=== PATIENT | male | born 1930 | race Caucasian/White ===

== ENCOUNTER → 2016-05-26 | Outpatient (CLI) | payer OTHER ==
[~2016-05-26] MED LIST: NS 100 ML IV 100 ML IV ONE
[2016-05-26 09:06] LABS: CREATININE 1.28 mg/dL (0.70-1.30)
--- NOTE | 2016-05-26 10:51 | CT ---
HISTORY: Bilateral inguinal hernia Study: CT abdomen and pelvis with contrast Comparison: None Technique: Multiple axial images of the abdomen and pelvis were obtained with IV contrast. Oral contrast was a dministered. Dose reduction techniques including Automated Exposure Control (AEC) and adjustment of mA and kV were utilized. Findings: There are emphysematous changes seen at the bilateral lung bases. Normal-sized heart. The liver, sp rhiannon, pancreas, kidneys, and adrenal glands are unremarkable in their CT appearance. The gallbladder is normal. No renal calculi or obstructive uropathy. No free intraperitoneal air. No evidence of intestinal obstruction or inflammation. The appendix is not clearly visualized. Oral contrast reaches the ascending colon. No free fluid identified. Normal appearance of the urinary bladder. There are bilateral inguinal hernias, larger on the right side containing a small segment of small b owel without evidence of incarceration. The left inguinal hernia contains fat. There are degenerativ e changes of the lumbosacral spine and bilateral hips. There is prominent atherosclerotic disease of the aorta and branch vessels. No pathologically enlarged lymph nodes are identified. IMPRESSION: 1. Bilateral inguinal hernias, larger on the right side. The right-sided hernia contains a short seg ment of small bowel without evidence of incarceration. The left inguinal hernia only contains fat. 2. Prominent atherosclerotic disease of the aorta and branch vessels. 3. Emphysematous changes at the lung bases. Reported By:
== END ==
LOC: RAD 08:35
PROVIDERS: ATTEND Nurse Practitioner Family
DX: K40.20 Bilateral inguinal hernia, without obstruction or gangrene, not specified as recurrent (principal); R10.31 Right lower quadrant pain; R10.11 Right upper quadrant pain
CPT/HCPCS: 36415; 74177; 82565; 84520; A4222

== ENCOUNTER → 2016-06-20 | Outpatient (CLI) | payer OTHER | LOC: RAD 09:01 | PROVIDERS: ATTEND Internal Medicine Cardiovascular Disease | DX: Z95.5 Presence of coronary angioplasty implant and graft (principal); R06.02 Shortness of breath; R42 Dizziness and giddiness | CPT/HCPCS: 78452; 93017; A9502 ==

== ENCOUNTER → 2016-07-06 | Outpatient (CLI) | payer OTHER | LOC: RAD 13:28 | PROVIDERS: ATTEND Internal Medicine Cardiovascular Disease | DX: I48.91 Unspecified atrial fibrillation (principal) | CPT/HCPCS: 93306 ==

== ENCOUNTER 2018-12-07 17:30 | Inpatient (IN) ==
--- NOTE | 2018-12-07 17:58 | DR.GENAD ---
HPI Time Seen Time Seen by Provider: 12/07/18 17:51 PCP Primary Care Physician: FINN ROSALES HPI Comment HPI Comment: THIS IS 88YR OLD WHITE MALE, PATIENT OF [facility] IS IN THE EMERGENCY ROOM WITH 5 DAYS HISTORY OF PROGRESSIVE SOB, WEAKNESS, ANOREXIA AND LEFT SHOULDER PAIN. PATIENT HAVE HISTORY OF CAD, S/P ANGIOPLASTY AND STENT AND DYSLIPIDEMIA. FOR PAST SEVERAL DAYS, HE IS HAVING EXERTIONAL DYSPNIA AND ORTHONEA. NO FEVER OR TRAUMA. Complaint/Symptoms Chief Complaint Doctors Comments: GENERALIZE WEAKNESS, SOB, LEFT SHOULDER PAIN AND ANOREXIA TIMES 5 DAYS. Chief Complaint:: PT. C/O WEAKNESS, SHORTNESS OF BREATH, DECREASED INTAKE AND LEFT SHOULDER PAIN. Nurses notes reviewed Nurses Notes Review: Yes Source History Provided: Patient Mode of Arrival Mode of Arrival: Ambulatory Timing Onset of Chief Complaint: 12/02/18 Came on: Suddenly Duration Duration: Constant Duration: Days Severity Severity: Moderate Modifying Factors Worsens:: EXERTION Improves:: REST Associated Signs and Symptoms Associated Signs and Symptoms: WEAKNESS. Other History Other History: CAD, A FIB. PMH PMH Past Medical History: Yes Past Medical History: Coronary Artery Disease and Dyslipidemia Past Surgical History: Yes Surgical History: Angioplasty/Stents and Other Family History History of Family Medical Conditions: Yes Family Medical History: Coronary Artery Disease Social History Does patient currently use any type of tobacco product: No Have you used tobacco products in the last 12 months: No Type of Tobacco Use: None Does any household member use tobacco: No Alcohol Use: None Do you use any recreational Drugs:: No Lives With: Alone Lives Where: Home infectious screening In the last 2 months have you had wt loss of >10#?: NO Have you had fever, night sweats or hemotysis?: No Have you traveled outside the country in the last 6 months?: No Isolation: Standard ROS Review of Systems Constitutional: See HPI, Weakness and Fatigue; negative Chills and Fever Eyes: See HPI and Other (BLIND) ENTM: Hearing Loss (DECREASE HEARING.); negative Ear Pain, Nose Discharge, Nose Congestion and Throat Pain Respiratoy: See HPI and Short of Breath; negative Productive Cough and Wheezing Cardiovascular: See HPI and Palpitations (IRREGULAR HEART RATE.); negative Edema Gastrointestinal/Abdominal: See HPI; negative Abdominal Pain, Constipation, Diarrhea and Nausea Genitourinary: See HPI; negative Dysuria and Hematuria Neurological: See HPI and Weakness; negative Headache and Dizziness Musculoskeletal: See HPI; negative Back Pain and Muscle Pain Integumentary: See HPI; negative Change in Color, Rash and Juandice Hematologic/Lymphatic: No Symptoms Reported, See HPI, Easy Bleeding and Easy Bruising; negative Swollen Glands Endocrine: See HPI; negative Increased Thirst and Increased Urine Psychiatric: No Symptoms Reported and See HPI All Other Systems: Reviewed and Negative PE Vital Signs Vitals: Temperature 98.8 F Pulse Rate [Left Brachial] 93 Pulse Rate 93 Respiratory Rate 18 Blood Pressure [Right Arm] 108/75 Blood Pressure 108/75 O2 Sat by Pulse Oximetry 96 General Limitations: Other (BLINDNESS.) General Appearance: Alert and In Distress Head Head Exam: Normal Inspection and Atraumatic Eyes Eye exam: Other (BLINDNESS BOTH EYES.) ENT ENT Exam: Normal Exam, Normal Oropharynx, Normal External Ear Exam and TM's Normal Bilaterally External Ear Exam: Normal External Inspection; negative Mastoid Tenderness, Pain with Movement and External Tenderness TM/Canal Exam: Bilateral: Normal Nose Exam: Normal Nose Exam; negative Sinus Tenderness, Nasal Deviation and Septal Hematoma Mouth Exam: Normal Inspection; negative Lip Swelling and Tongue Swelling Throat Exam: negative Tonsillar Erythema, Tonsillomegaly and Tonsillar Exudate Neck Neck Exam: Normal Inspection and Trachea Midline; negative Tenderness and Lymphadenopathy Chest Chest Inspection: Normal Inspection and Symmetric Chest Wall Rise; negative Tenderness Respiratory Respiratory Exam: Normal Lung Sounds Bilat and Respiratory Distress; negative Accessory Muscle Use and Chest Wall Tenderness Respiratory Exam: Bilateral: Rhonchi, Upper: Rhonchi and Lower: Rhonchi Cardiovascular Cardiovascular Exam: Tachycardia and Irregular Rhythm; negative Systolic Murmur and Diastolic Murmur Abdominal Exam Abdominal Exam: Normal Inspection, Normal Bowel Sounds and Soft; negative Tenderness Extremities Extremities Exam: Normal Inspection and Normal Capillary Refill; negative Tenderness, Edema and Calf Tenderness Back Back Exam: negative Tenderness, (R) CVA Tenderness, (L) CVA Tenderness, Paraspinal Tenderness and Vertebral Tenderness Neurologic Neurological Exam: Alert, Oriented X3 and CN II-XII Intact (BLINDNESS.) Psychiatric Psychiatric Exam: Normal Affect and Normal Mood Skin Skin Exam: Warm, Dry, Intact and Normal Color MDM Additional Information Additional Information Obtained From: Family Differential Diagnosis Differential Diagnosis: CAD/LT SHOULDER PAIN, DYSPNIA, GENERALIZED WEAKNESS, A FIB, NV, UTI, PNEUMO COURSE Treatment Treatment: SEE ORDERS. LASIX, 20MG IM. Consultation Consultation Comments: DISCUSSED PATIENT WITH DR. GANN AND SHE WILL ADMIT PATIENT. Education/Counseling Education/Counseling: Patient and Family Educated On: Diagnosis ROR Labs Reviewed Laboratory Results Reviewed?: Yes Result Diagrams: 12/08/18 04:32 12/08/18 04:32 Laboratory: WBC 11.1 X10^3/uL (3.6-10.0) H 12/07/18 18:13 RBC 4.66 X10^6/uL (4.7-6.0) L 12/07/18 18:13 Hgb 15.1 g/dL (13.5-18.0) 12/07/18 18:13 Hct 44.4 % (42.0-54.0) 12/07/18 18:13 MCV 95.2 fL (80.0-100.0) 12/07/18 18:13 MCH 32.3 pg (27.0-34.0) 12/07/18 18:13 MCHC 33.9 g/dL (33.0-35.0) 12/07/18 18:13 RDW 16.0 % (11.6-16.5) 12/07/18 18:13 Plt Count 254 X10^3/uL (150.0-450.0) 12/07/18 18:13 MPV 7.3 fL (7.4-11.0) L 12/07/18 18:13 Neut % (Auto) 78.4 % (42.0-75.0) H 12/07/18 18:13 Lymph % (Auto) 10.5 % (21.0-51.0) L 12/07/18 18:13 [place] % (Auto) 10.6 % (0.0-13.0) 12/07/18 18:13 Eos % (Auto) 0.1 % (0.9-2.9) L 12/07/18 18:13 Baso % (Auto) 0.4 % (0.2-1.0) 12/07/18 18:13 Neut # (Auto) 8.7 x10^3/uL (2.2-4.8) H 12/07/18 18:13 Lymph # (Auto) 1.2 X10^3/uL (1.3-2.9) L 12/07/18 18:13 [place] # (Auto) 1.2 x10^3/uL (0.3-0.8) H 12/07/18 18:13 Eos # (Auto) 0.0 x10^3/uL (0.0-0.2) 12/07/18 18:13 Baso # (Auto) 0.0 X10^3/uL (0.0-0.1) 12/07/18 18:13 Absolute Nucleated RBC 0.0 /100WBC 12/07/18 18:13 Sodium 140 mmol/L (136-145) 12/07/18 18:13 Corrected Sodium 141 mmol/L (136-145) 12/07/18 18:13 Potassium 4.0 mmol/L (3.5-5.1) 12/07/18 18:13 Chloride 103 mmol/L (98-107) 12/07/18 18:13 Carbon Dioxide 24.6 mmol/L (21-32) 12/07/18 18:13 BUN 36 mg/dL (7-18) H 12/07/18 18:13 Creatinine 1.54 mg/dL (0.70-1.30) H 12/07/18 18:13 Est GFR (MDRD) Af Amer 55 (>60) L 12/07/18 18:13 Est GFR (MDRD) Non-Af 45 (>60) L 12/07/18 18:13 Glucose 132 mg/dL (65-99) H 12/07/18 18:13 Calcium 8.3 mg/dL (8.5-10.1) L 12/07/18 18:13 Corrected Calcium 9.2 mg/dL (8.5-10.1) 12/07/18 18:13 Total Bilirubin 1.20 mg/dL (0.2-1.0) H 12/07/18 18:13 AST 12 Units/L (15-37) L 12/07/18 18:13 ALT 11 Units/L (12-78) L 12/07/18 18:13 Alkaline Phosphatase 101 Units/L (46-116) 12/07/18 18:13 Creatine Kinase 18 Units/L (39-308) L 12/07/18 18:13 CK-MB (CK-2) < 1.0 ng/mL (0-4.0) 12/07/18 18:13 CK/CKMB % Calc 5.6 % (<4) 12/07/18 18:13 Troponin I < 0.02 ng/mL (0-1.5) 12/07/18 18:13 B-Natriuretic Peptide 317 pg/mL (0-79) H 12/07/18 18:13 Total Protein 7.3 g/dL (6.4-8.2) 12/07/18 18:13 Albumin 2.9 g/dL (3.4-5.0) L 12/07/18 18:13 Globulin 4.4 g/dL (2.5-4.5) 12/07/18 18:13 Albumin/Globulin Ratio 0.7 Ratio (1.1-2.1) L 12/07/18 18:13 XRAY XRAY Interpreted by: Radiologist XRAY Findings: REPORT NOTED AND DISCUSSED WITH PATIENT AND FAMILY. EKG Rate: 111 [place]: Normal Rhythm: Afib Block: None Hypertrophy: None ST: Nonsp Opioid Opioid Risk Tool Age (Shahriar box if 16-45): No History of Preadolescent Sexual Abuse: No Total: 0 Total Score Risk Category: Low Risk Copyright: [place] predicting aberrant behaviors Diagnosis Discharge Problem: Generalized weakness, Atrial fibrillation with RVR CHF (congestive heart failure) Qualifiers: Heart failure type: combined systolic and diastolic Heart failure chronicity: acute on chronic Qualified Code(s): I50.43 - Acute on chronic combined systolic (congestive) and diastolic (congestive) heart failure CAD (coronary artery disease) Qualifiers: Coronary Disease-Associated Artery/Lesion type: unspecified vessel or lesion type [place] vs. transplanted heart: [place] heart Associated angina: with unspecified angina Qualified Code(s): I25.119 - Atherosclerotic heart disease of [place] coronary artery with unspecified angina pectoris Instructions Forms: Excuse From Work Patient Portal
[2018-12-07] MEDS ORDERED: NS 1000 ML 1,000 ML ONE (18:09)
[2018-12-07 18:26] LABS: BASOPHILS % (AUTO) 0.4 % (0.2-1.0); EOSINOPHILS % (AUTO) 0.1 % (0.9-2.9); HEMATOCRIT 44.4 % (42.0-54.0); HEMOGLOBIN 15.1 g/dL (13.5-18.0); LYMPHOCYTES # (AUTO) 1.2 X10^3/uL (1.3-2.9); LYMPHOCYTES % (AUTO) 10.5 % (21.0-51.0); MEAN CORPUSCULAR HEMOGLOBIN 32.3 pg (27.0-34.0); MEAN CORPUSCULAR HGB CONC 33.9 g/dL (33.0-35.0); MEAN CORPUSCULAR VOLUME 95.2 fL (80.0-100.0); MEAN PLATELET VOLUME 7.3 fL (7.4-11.0); MONOCYTES # (AUTO) 1.2 x10^3/uL (0.3-0.8); MONOCYTES % (AUTO) 10.6 % (0.0-13.0); NEUTROPHILS # (AUTO) 8.7 x10^3/uL (2.2-4.8); NEUTROPHILS % (AUTO) 78.4 % (42.0-75.0); PLATELET COUNT 254 X10^3/uL (150.0-450.0); RED BLOOD COUNT 4.66 X10^6/uL (4.7-6.0); WHITE BLOOD COUNT 11.1 X10^3/uL (3.6-10.0)
--- NOTE | 2018-12-07 18:35 | RAD ---
HISTORY: 88-year-old male with weakness and shortness of breath. Study: Frontal view of the chest. Comparison: Chest radiographs 10/03/2018 Findings: Interval exacerbated in of cardiomegaly with continued prominence of perihilar lung markings and interstitium. The trachea is midline. Small left effusion with mild pulmonary edema. No pneumothorax or large consolidation. Soft tissues are unremarkable. Osseous structures are unremarkable. IMPRESSION: 1. Interval exacerbated of cardiomegaly with mild pulmonary edema and small left effusion, correlate with serology for CHF and underlying infection. Reported By:
[2018-12-07 18:43] LABS: BLOOD UREA NITROGEN 36 mg/dL (7-18); CALCIUM 8.3 mg/dL (8.5-10.1); CARBON DIOXIDE 24.6 mmol/L (21-32); CHLORIDE 103 mmol/L (98-107); COR NA(FOR HYPERGLY) 141 mmol/L (136-145); CREATININE 1.54 mg/dL (0.70-1.30); SODIUM 140 mmol/L (136-145); TROPONIN I < 0.02 ng/mL (0-1.5); eGFR NON BLACK RACES 45 (>60)
[2018-12-07 18:47] LABS: ALANINE AMINOTRANSFERASE 11 Units/L (12-78); ALBUMIN 2.9 g/dL (3.4-5.0); ALKALINE PHOSPHATASE 101 Units/L (46-116); ASPARTATE AMINO TRANSFERASE 12 Units/L (15-37); CKMB % 5.6 % (<4); COR CA(FOR HYPOALB) 9.2 mg/dL (8.5-10.1); CREATINE KINASE 18 Units/L (39-308); CREATINE KINASE MB < 1.0 ng/mL (0-4.0); TOTAL PROTEIN 7.3 g/dL (6.4-8.2)
[2018-12-07] MEDS ORDERED: NS 1000 ML 1,000 ML IV SCH (19:00)
[2018-12-07] MEDS ORDERED: LASIX IVP ONE (20:11)
[2018-12-07] MEDS ORDERED: LASIX ONE (20:18)
[2018-12-07 21:46] LABS: CKMB % 5.3 % (<4); CREATINE KINASE 19 Units/L (39-308); CREATINE KINASE MB < 1.0 ng/mL (0-4.0); TROPONIN I < 0.02 ng/mL (0-1.5)
[2018-12-08 02:00] VITALS: BMI 19.5
[2018-12-08 02:12] LABS: BILIRUBIN,URINE NEGATIVE (NEGATIVE); BLOOD/HEMOGLOBIN,URINE 3+ (NEGATIVE); GLUCOSE, URINE NEGATIVE (NEGATIVE); KETONES,URINE NEGATIVE (NEGATIVE); LEUKOCYTE ESTERASE ,URINE 3+ (NEGATIVE); NITRITES,URINE NEGATIVE (NEGATIVE); PH,URINE 6.5 (5.0 - 8.0); PROTEIN,URINE 2+ (NEGATIVE); UROBILINOGEN,URINE 1+ (NORMAL)
[2018-12-08 02:19] LABS: APPEARANCE,URINE CLOUDY (CLEAR); BACTERIA,URINE 2+ /HPF (NEGATIVE); COLOR,URINE YELLOW (YELLOW); MUCUS,URINE FEW /HPF (NEGATIVE); SQUAMOUS EPITHELIAL CELL,UR RARE /HPF (NEGATIVE)
[2018-12-08 06:08] LABS: BASOPHILS % (AUTO) 0.2 % (0.2-1.0); EOSINOPHILS % (AUTO) 0.2 % (0.9-2.9); HEMATOCRIT 45.5 % (42.0-54.0); HEMOGLOBIN 15.7 g/dL (13.5-18.0); LYMPHOCYTES % (AUTO) 10.8 % (21.0-51.0); MEAN CORPUSCULAR HEMOGLOBIN 32.9 pg (27.0-34.0); MEAN CORPUSCULAR HGB CONC 34.5 g/dL (33.0-35.0); MEAN CORPUSCULAR VOLUME 95.1 fL (80.0-100.0); MEAN PLATELET VOLUME 7.7 fL (7.4-11.0); MONOCYTES # (AUTO) 0.9 x10^3/uL (0.3-0.8); MONOCYTES % (AUTO) 8.8 % (0.0-13.0); NEUTROPHILS # (AUTO) 7.7 x10^3/uL (2.2-4.8); PLATELET COUNT 257 X10^3/uL (150.0-450.0); RED BLOOD COUNT 4.78 X10^6/uL (4.7-6.0); WHITE BLOOD COUNT 9.7 X10^3/uL (3.6-10.0)
[2018-12-08 06:49] LABS: ALANINE AMINOTRANSFERASE 13 Units/L (12-78); ALBUMIN 2.9 g/dL (3.4-5.0); ALKALINE PHOSPHATASE 106 Units/L (46-116); ASPARTATE AMINO TRANSFERASE 15 Units/L (15-37); BLOOD UREA NITROGEN 35 mg/dL (7-18); CALCIUM 8.5 mg/dL (8.5-10.1); CARBON DIOXIDE 28.4 mmol/L (21-32); CHLORIDE 102 mmol/L (98-107); CHOL/HDL RATIO 2.8 (0.0-5.0); CHOLESTEROL 124 mg/dL (0-200); CKMB % 4.8 % (<4); COR CA(FOR HYPOALB) 9.4 mg/dL (8.5-10.1); COR NA(FOR HYPERGLY) 142 mmol/L (136-145); CREATINE KINASE 21 Units/L (39-308); CREATINE KINASE MB < 1.0 ng/mL (0-4.0); CREATININE 1.63 mg/dL (0.70-1.30); HDL CHOLESTEROL 44 mg/dL (40-60); MAGNESIUM 2.2 mg/dL (1.7-2.9); SODIUM 141 mmol/L (136-145); TOTAL PROTEIN 7.5 g/dL (6.4-8.2); TRIGLYCERIDES 51 mg/dL (0-150); TROPONIN I < 0.02 ng/mL (0-1.5); eGFR NON BLACK RACES 43 (>60)
[2018-12-08] MEDS ORDERED: LASIX IVP SCH (09:00)
[2018-12-08] MEDS ORDERED: LASIX IVP ONE (10:07)
[2018-12-08] MEDS: RANEXA PO SCH ×3 (10:10→21:22)
[2018-12-08] MEDS: LASIX IVP SCH (10:10)
[2018-12-08] MEDS: LOPRESSOR TAB 25 MG PO SCH ×2 (10:14→21:20)
--- NOTE | 2018-12-08 11:22 | DR.H&P ---
H&P History & Physical for Day of: H&P Date: 12/08/18 Chief Complaint Chief Complaint: worsening SOB , weakness and anorexia. Allergies Allergies Allergy/AdvReac Type Severity Reaction Status Date / Time No Known Drug Allergies Allergy Verified 12/07/18 17:36 History of Present Illness History of Present Illness: Mr. Melgar is a 88y/o male with a PMH of atrial fi brillation, CAD s/p PCI and HLD presented with generalized weakness, SOB, anorexia and left shoulder pain. Patient reports symptoms started a day before coming to ED. He states his shoulder pain has been there longer and it travels from left shoulder to right. He denies chest pain. He sees Dr. De Guzman, last seen for atrial fibrillation. He was started on Ranexa. He had a normal stress test in September 2018. On admission, CXR showed vascular congestion and left effusion. He was noted to have Afib with RVR with HR in 90s-low 100s. He was given 20 mg IV Lasix. Trop x 3 (-), BNP: 317. He was not taking any medication for rate control, not on any anti-coagulation. Patient reports SOB is about the same, he has not walked around since admission. At home, he was having dyspnea on exertion. He reports improvement in appetite, he was able to finish his breakfast this morning. Past Medical History Past Medical History: Angina, Coronary Artery Disease and Dyslipidemia Additional Medical History: Atrial fibrillation, Hyperlipidemia Past Surgical History Surgical History: Angioplasty/Stents and Other Family History Family Medical History: Coronary Artery Disease Social History Does patient currently use any type of tobacco product: No Have you used tobacco products in the last 12 months: No Type of Tobacco Use: None Does any household member use tobacco: No Alcohol Use: None Drug Use: None Medications Home Medications: No Known Drug Allergies Allergy (Verified 12/07/18 17:36) CONTINUE taking the following medications atorvastatin [Lipitor] 10 mg PO DAILY 12/08/18 [History] ranolazine [Ranexa] 500 mg PO BID 12/08/18 [History] Labs Result Diagrams: 12/08/18 04:32 12/08/18 04:32 Labs: Laboratory WBC 9.7 X10^3/uL (3.6-10.0) 12/08/18 04:32 RBC 4.78 X10^6/uL (4.7-6.0) 12/08/18 04:32 Hgb 15.7 g/dL (13.5-18.0) 12/08/18 04:32 Hct 45.5 % (42.0-54.0) 12/08/18 04:32 MCV 95.1 fL (80.0-100.0) 12/08/18 04:32 MCH 32.9 pg (27.0-34.0) 12/08/18 04:32 MCHC 34.5 g/dL (33.0-35.0) 12/08/18 04:32 RDW 16.0 % (11.6-16.5) 12/08/18 04:32 Plt Count 257 X10^3/uL (150.0-450.0) 12/08/18 04:32 MPV 7.7 fL (7.4-11.0) 12/08/18 04:32 Neut % (Auto) 80.0 % (42.0-75.0) H 12/08/18 04:32 Lymph % (Auto) 10.8 % (21.0-51.0) L 12/08/18 04:32 [place] % (Auto) 8.8 % (0.0-13.0) 12/08/18 04:32 Eos % (Auto) 0.2 % (0.9-2.9) L 12/08/18 04:32 Baso % (Auto) 0.2 % (0.2-1.0) 12/08/18 04:32 Neut # (Auto) 7.7 x10^3/uL (2.2-4.8) H 12/08/18 04:32 Lymph # (Auto) 1.0 X10^3/uL (1.3-2.9) L 12/08/18 04:32 [place] # (Auto) 0.9 x10^3/uL (0.3-0.8) H 12/08/18 04:32 Eos # (Auto) 0.0 x10^3/uL (0.0-0.2) 12/08/18 04:32 Baso # (Auto) 0.0 X10^3/uL (0.0-0.1) 12/08/18 04:32 Absolute Nucleated RBC 0.1 /100WBC 12/08/18 04:32 Sodium 141 mmol/L (136-145) 12/08/18 04:32 Corrected Sodium 142 mmol/L (136-145) 12/08/18 04:32 Potassium 3.9 mmol/L (3.5-5.1) 12/08/18 04:32 Chloride 102 mmol/L (98-107) 12/08/18 04:32 Carbon Dioxide 28.4 mmol/L (21-32) 12/08/18 04:32 BUN 35 mg/dL (7-18) H 12/08/18 04:32 Creatinine 1.63 mg/dL (0.70-1.30) H 12/08/18 04:32 Est GFR (MDRD) Af Amer 51 (>60) L 12/08/18 04:32 Est GFR (MDRD) Non-Af 43 (>60) L 12/08/18 04:32 Glucose 125 mg/dL (65-99) H 12/08/18 04:32 Calcium 8.5 mg/dL (8.5-10.1) 12/08/18 04:32 Corrected Calcium 9.4 mg/dL (8.5-10.1) 12/08/18 04:32 Magnesium 2.2 mg/dL (1.7-2.9) 12/08/18 04:32 Total Bilirubin 1.20 mg/dL (0.2-1.0) H 12/08/18 04:32 AST 15 Units/L (15-37) 12/08/18 04:32 ALT 13 Units/L (12-78) 12/08/18 04:32 Alkaline Phosphatase 106 Units/L (46-116) 12/08/18 04:32 Creatine Kinase 21 Units/L (39-308) L 12/08/18 04:32 CK-MB (CK-2) < 1.0 ng/mL (0-4.0) 12/08/18 04:32 CK/CKMB % Calc 4.8 % (<4) 12/08/18 04:32 Troponin I < 0.02 ng/mL (0-1.5) 12/08/18 04:32 B-Natriuretic Peptide 317 pg/mL (0-79) H 12/07/18 18:13 Total Protein 7.5 g/dL (6.4-8.2) 12/08/18 04:32 Albumin 2.9 g/dL (3.4-5.0) L 12/08/18 04:32 Globulin 4.6 g/dL (2.5-4.5) H 12/08/18 04:32 Albumin/Globulin Ratio 0.6 Ratio (1.1-2.1) L 12/08/18 04:32 Triglycerides 51 mg/dL (0-150) 12/08/18 04:32 Cholesterol 124 mg/dL (0-200) 12/08/18 04:32 LDL Cholesterol, Calc 70 mg/dL (0-100) 12/08/18 04:32 HDL Cholesterol 44 mg/dL (40-60) 12/08/18 04:32 Cholesterol/HDL Ratio 2.8 (0.0-5.0) 12/08/18 04:32 Specimen Type Clean catch urine 12/08/18 02:06 Urine Color Yellow (YELLOW) 12/08/18 02:06 Urine Appearance Cloudy (CLEAR) 12/08/18 02:06 Urine pH 6.5 (5.0 - 8.0) 12/08/18 02:06 Ur Specific [place] 1.015 (1.000-1.030) 12/08/18 02:06 Urine Protein 2+ (NEGATIVE) 12/08/18 02:06 Urine Glucose (UA) Negative (NEGATIVE) 12/08/18 02:06 Urine Ketones Negative (NEGATIVE) 12/08/18 02:06 Urine Occult Blood 3+ (NEGATIVE) 12/08/18 02:06 Urine Nitrite Negative (NEGATIVE) 12/08/18 02:06 Urine Bilirubin Negative (NEGATIVE) 12/08/18 02:06 Urine Urobilinogen 1+ (NORMAL) 12/08/18 02:06 Ur Leukocyte Esterase 3+ (NEGATIVE) 12/08/18 02:06 Urine RBC 10-20 /HPF (0-3) A 12/08/18 02:06 Urine WBC 20-30 /HPF (0-5) A 12/08/18 02:06 Ur Squamous Epith Cells Rare /HPF (NEGATIVE) 12/08/18 02:06 Urine Bacteria 2+ /HPF (NEGATIVE) 12/08/18 02:06 Urine Mucus Few /HPF (NEGATIVE) 12/08/18 02:06 Ur Culture Indicated? Yes/culture set up 12/08/18 02:06 Review of Systems Constitutional: Weakness; denies Fever, Chills and Sweats Eyes: No Symptoms Reported ENT: No Symptoms Reported Respiratory: Shortness of Breath and SOB with Excertion; denies Cough, Hem optysis and Pleuritic Pain Cardiovascular: denies Chest Pain, Palpitations, Edema and Light Headedness Gastrointestinal: denies Nausea, Vomiting, Abdominal Pain and Constipation Genitourinary: No Symptoms Reported Musculoskeletal: Shoulder Pain Skin: No Symptoms Reported Neurological: No Symptoms Reported Physical Exam Vital Signs: Temperature 97.8 F Pulse Rate [Left Brachial] 123 Pulse Rate 96 Respiratory Rate 32 Blood Pressure [Left Arm] 145/81 Blood Pressure [Right Arm] 115/80 Blood Pressure 115/80 O2 Sat by Pulse Oximetry 99 Oriented: Normal Eyes: Normal Throat: Normal Respiratory: RLL Rales and LLL Rales Cardiovascular: Tachycardia and Irregular Auscultation: Bowel Sounds: Normal Palpation: Normal Tenderness: Normal Skin: Normal Musculoskeletal: Left (left shoulder tenderness, some restriction with ROM) Psychiatric: Normal Mood Description: Calm Affect: Normal Speech Pattern: Clear and Appropriate Assessment/Plan (1) Acute CHF (congestive heart failure): Status: Acute Plan: fluid overload on exam, CXR mild edema, effusion. Received 20 mg IV Lasix in ED. Trop x 3 (-), will increase Lasix to 40 mg IV daily. Daily weights, strict I/Os, fluid restriction. Oxygen prn to keep sats> 92%. ECHO ordered to assess LV function. Normal stress test (2) Atrial fibrillation with RVR: Status: Acute Plan: HR: low 100s, not on any beta-fortunato or CCB, will start metoprolol tartrate 12.5 mg BID for rate control, telemetry. Not on anticoagulation. (3) Generalized weakness: Status: Acute Plan: likely due to CHF, Afib RVR and poor nutrition (4) CAD (coronary artery disease): Qualifiers: Associated angina: with unspecified angina Coronary Disease-Associated Artery/Lesion type: unspecified vessel or lesion type [place] vs. transplanted heart: [place] heart Qualified Code(s): I25.119 - Atherosclerotic heart disease of [place] coronary artery with unspecified angina pectoris Status: Acute Plan: resume ranexa and Lipitor (5) Chronic kidney disease: Status: Acute Plan: monitor Cr, daily BMP
[2018-12-08 13:32] LABS: APPEARANCE,URINE HAZY (CLEAR); BILIRUBIN,URINE NEGATIVE (NEGATIVE); BLOOD/HEMOGLOBIN,URINE 4+ (NEGATIVE); COLOR,URINE YELLOW (YELLOW); GLUCOSE, URINE NEGATIVE (NEGATIVE); KETONES,URINE NEGATIVE (NEGATIVE); LEUKOCYTE ESTERASE ,URINE 3+ (NEGATIVE); NITRITES,URINE NEGATIVE (NEGATIVE); PH,URINE 6.5 (5.0 - 8.0); PROTEIN,URINE NEGATIVE (NEGATIVE); UROBILINOGEN,URINE 2+ (NORMAL)
[2018-12-08 13:39] LABS: BACTERIA,URINE 2+ /HPF (NEGATIVE); SQUAMOUS EPITHELIAL CELL,UR FEW /HPF (NEGATIVE)
[2018-12-08] MEDS: ROCEPHIN VIAL 1 GRAM 1 G in NS 100 ML IV + SPIKE MINIBAG* 100 ML IV SCH (21:26)
[2018-12-09 06:02] LABS: BASOPHILS % (AUTO) 0.2 % (0.2-1.0); EOSINOPHILS # (AUTO) 0.1 x10^3/uL (0.0-0.2); EOSINOPHILS % (AUTO) 0.9 % (0.9-2.9); HEMATOCRIT 41.7 % (42.0-54.0); HEMOGLOBIN 14.3 g/dL (13.5-18.0); LYMPHOCYTES # (AUTO) 1.4 X10^3/uL (1.3-2.9); LYMPHOCYTES % (AUTO) 19.6 % (21.0-51.0); MEAN CORPUSCULAR HEMOGLOBIN 32.9 pg (27.0-34.0); MEAN CORPUSCULAR HGB CONC 34.4 g/dL (33.0-35.0); MEAN CORPUSCULAR VOLUME 95.7 fL (80.0-100.0); MEAN PLATELET VOLUME 7.9 fL (7.4-11.0); MONOCYTES # (AUTO) 0.7 x10^3/uL (0.3-0.8); MONOCYTES % (AUTO) 9.9 % (0.0-13.0); NEUTROPHILS % (AUTO) 69.4 % (42.0-75.0); PLATELET COUNT 239 X10^3/uL (150.0-450.0); RED BLOOD COUNT 4.36 X10^6/uL (4.7-6.0); RED CELL DISTRIBUTION WIDTH 15.8 % (11.6-16.5); WHITE BLOOD COUNT 7.3 X10^3/uL (3.6-10.0)
[2018-12-09 06:15] LABS: BLOOD UREA NITROGEN 32 mg/dL (7-18); CALCIUM 7.9 mg/dL (8.5-10.1); CARBON DIOXIDE 27.8 mmol/L (21-32); CHLORIDE 102 mmol/L (98-107); CREATININE 1.49 mg/dL (0.70-1.30); SODIUM 141 mmol/L (136-145); eGFR NON BLACK RACES 47 (>60)
[2018-12-09] MEDS ORDERED: MICRO K EXTEN CAP 10 MEQ PO PRN (06:43)
[2018-12-09] MEDS ORDERED: POTASSIUM CHL 60 MEQ/NS 0.45% 500 ML IV PRN (06:43)
[2018-12-09] MEDS ORDERED: POTASSIUM CHLORIDE LIQ 20 MEQ UDC PO PRN (06:43)
[2018-12-09] MEDS ORDERED: POTASSIUM CHL 40 MEQ/NS 0.45% 500 ML IV PRN (06:43)
[2018-12-09] MEDS ORDERED: KLOR-CON PO PRN (06:43)
[2018-12-09] MEDS ORDERED: K-RIDER 10 MEQ/NS 100 ML 10 MEQ/100 ML BAG IV PRN (06:43)
[2018-12-09] MEDS ORDERED: LASIX IVP SCH (09:00)
[2018-12-09] MEDS ORDERED: NS 100 ML IV 0 ML IV ONE (09:07)
[2018-12-09] MEDS: ROCEPHIN VIAL 1 GRAM 1 G in NS 100 ML IV + SPIKE MINIBAG* 100 ML IV SCH (09:28)
[2018-12-09] MEDS: K-DUR TAB 20 MEQ PO PRN (09:30)
[2018-12-09] MEDS: LIPITOR TAB 10 MG PO SCH (09:30)
[2018-12-09] MEDS: RANEXA PO SCH ×2 (09:30→20:30)
[2018-12-09] MEDS: LOPRESSOR TAB 25 MG PO SCH ×2 (09:31→20:30)
[2018-12-09] MEDS: LASIX IVP SCH (09:33)
--- NOTE | 2018-12-09 10:36 | PCM.PROG ---
Progress Note Progress Note for Day of Date of Exam: 12/09/18 Subjective Subjective: Patient seen this AM, reports feeling better. His breathing has improved. 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 He has been eating well. He reports having some dysuria prior to coming, UA suggestive of infection so Rocephin was started. He is currently on 2L oxygen. Past Medical Family Social History Past Med/Fam/Surg Hx: No changes since H&P Allergies: Allergies No Known Drug Allergies Allergy (Verified 12/07/18 17:36) Review of Systems ROS: No change since H&P Vital Signs and I&O's Vital Signs: Temperature 97.4 F Pulse Rate [Left Brachial] 89 Pulse Rate 96 Respiratory Rate 18 Blood Pressure [Left Arm] 97/73 Blood Pressure [Right Arm] 101/60 Blood Pressure 115/80 O2 Sat by Pulse Oximetry 97 Intake and Output: Intake & Output 12/06/18 12/07/18 12/08/18 12/09/18 23:59 23:59 23:59 23:59 Intake Total 0 / 0 1580 / 1580 0 / 0 Output Total 100 / 100 1775 / 1775 175 / 175 Balance -100 / -100 -195 / -195 -175 / -175 Physical Exam Oriented: Normal Eyes: Normal Throat: Normal Respiratory: Rales Cardiovascular: Tachycardia and Irregular Auscultation: Bowel Sounds: Normal Tenderness: Normal Skin: Normal Musculoskeletal: Left (left shoulder tenderness, some restriction with ROM) Psychiatric: Normal Mood Description: Calm Affect: Normal Speech Pattern: Clear and Appropriate Laboratory and Diagnostics Result Diagrams: 12/09/18 04:04 12/09/18 04:04 Labs: 12/08/18 02:06 Urine,Clean Catch Urine Culture - Preliminary Laboratory WBC 7.3 X10^3/uL (3.6-10.0) 12/09/18 04:04 RBC 4.36 X10^6/uL (4.7-6.0) L 12/09/18 04:04 Hgb 14.3 g/dL (13.5-18.0) 12/09/18 04:04 Hct 41.7 % (42.0-54.0) L 12/09/18 04:04 MCV 95.7 fL (80.0-100.0) 12/09/18 04:04 MCH 32.9 pg (27.0-34.0) 12/09/18 04:04 MCHC 34.4 g/dL (33.0-35.0) 12/09/18 04:04 RDW 15.8 % (11.6-16.5) 12/09/18 04:04 Plt Count 239 X10^3/uL (150.0-450.0) 12/09/18 04:04 MPV 7.9 fL (7.4-11.0) 12/09/18 04:04 Neut % (Auto) 69.4 % (42.0-75.0) 12/09/18 04:04 Lymph % (Auto) 19.6 % (21.0-51.0) L 12/09/18 04:04 [place] % (Auto) 9.9 % (0.0-13.0) 12/09/18 04:04 Eos % (Auto) 0.9 % (0.9-2.9) 12/09/18 04:04 Baso % (Auto) 0.2 % (0.2-1.0) 12/09/18 04:04 Neut # (Auto) 5.0 x10^3/uL (2.2-4.8) H 12/09/18 04:04 Lymph # (Auto) 1.4 X10^3/uL (1.3-2.9) 12/09/18 04:04 [place] # (Auto) 0.7 x10^3/uL (0.3-0.8) 12/09/18 04:04 Eos # (Auto) 0.1 x10^3/uL (0.0-0.2) 12/09/18 04:04 Baso # (Auto) 0.0 X10^3/uL (0.0-0.1) 12/09/18 04:04 Absolute Nucleated RBC 0.1 /100WBC 12/09/18 04:04 Sodium 141 mmol/L (136-145) 12/09/18 04:04 Corrected Sodium TNP 12/09/18 04:04 Potassium 3.4 mmol/L (3.5-5.1) L 12/09/18 04:04 Chloride 102 mmol/L (98-107) 12/09/18 04:04 Carbon Dioxide 27.8 mmol/L (21-32) 12/09/18 04:04 BUN 32 mg/dL (7-18) H 12/09/18 04:04 Creatinine 1.49 mg/dL (0.70-1.30) H 12/09/18 04:04 Est GFR (MDRD) Af Amer 57 (>60) L 12/09/18 04:04 Est GFR (MDRD) Non-Af 47 (>60) L 12/09/18 04:04 Glucose 109 mg/dL (65-99) H 12/09/18 04:04 Calcium 7.9 mg/dL (8.5-10.1) L 12/09/18 04:04 Corrected Calcium 9.4 mg/dL (8.5-10.1) 12/08/18 04:32 Magnesium 2.2 mg/dL (1.7-2.9) 12/08/18 04:32 Total Bilirubin 1.20 mg/dL (0.2-1.0) H 12/08/18 04:32 AST 15 Units/L (15-37) 12/08/18 04:32 ALT 13 Units/L (12-78) 12/08/18 04:32 Alkaline Phosphatase 106 Units/L (46-116) 12/08/18 04:32 Creatine Kinase 21 Units/L (39-308) L 12/08/18 04:32 CK-MB (CK-2) < 1.0 ng/mL (0-4.0) 12/08/18 04:32 CK/CKMB % Calc 4.8 % (<4) 12/08/18 04:32 Troponin I < 0.02 ng/mL (0-1.5) 12/08/18 04:32 B-Natriuretic Peptide 317 pg/mL (0-79) H 12/07/18 18:13 Total Protein 7.5 g/dL (6.4-8.2) 12/08/18 04:32 Albumin 2.9 g/dL (3.4-5.0) L 12/08/18 04:32 Globulin 4.6 g/dL (2.5-4.5) H 12/08/18 04:32 Albumin/Globulin Ratio 0.6 Ratio (1.1-2.1) L 12/08/18 04:32 Triglycerides 51 mg/dL (0-150) 12/08/18 04:32 Cholesterol 124 mg/dL (0-200) 12/08/18 04:32 LDL Cholesterol, Calc 70 mg/dL (0-100) 12/08/18 04:32 HDL Cholesterol 44 mg/dL (40-60) 12/08/18 04:32 Cholesterol/HDL Ratio 2.8 (0.0-5.0) 12/08/18 04:32 Specimen Type Catherized urine 12/08/18 12:35 Urine Color Yellow (YELLOW) 12/08/18 12:35 Urine Appearance Hazy (CLEAR) 12/08/18 12:35 Urine pH 6.5 (5.0 - 8.0) 12/08/18 12:35 Ur Specific [place] 1.010 (1.000-1.030) 12/08/18 12:35 Urine Protein Negative (NEGATIVE) 12/08/18 12:35 Urine Glucose (UA) Negative (NEGATIVE) 12/08/18 12:35 Urine Ketones Negative (NEGATIVE) 12/08/18 12:35 Urine Occult Blood 4+ (NEGATIVE) 12/08/18 12:35 Urine Nitrite Negative (NEGATIVE) 12/08/18 12:35 Urine Bilirubin Negative (NEGATIVE) 12/08/18 12:35 Urine Urobilinogen 2+ (NORMAL) 12/08/18 12:35 Ur Leukocyte Esterase 3+ (NEGATIVE) 12/08/18 12:35 Urine RBC 10-20 /HPF (0-3) A 12/08/18 12:35 Urine WBC Tntc /HPF (0-5) A 12/08/18 12:35 Ur Squamous Epith Cells Few /HPF (NEGATIVE) 12/08/18 12:35 Urine Bacteria 2+ /HPF (NEGATIVE) 12/08/18 12:35 Urine Mucus Few /HPF (NEGATIVE) 12/08/18 02:06 Ur Culture Indicated? No/not indicated 12/08/18 12:35 Plan (1) UTI (urinary tract infection): Status: Acute Plan: UA suggestive of infection, culture pending. Started Rocephin yesterday. (2) Acute CHF (congestive heart failure): Status: Acute Plan: fluid overload on exam, CXR mild edema, effusion. Trop x 3 (-), continue Lasix 40 mg IV daily. Daily weights, strict I/Os, fluid restriction. Oxygen prn to keep sats> 92%. ECHO ordered to assess LV function. Normal stress test (3) Atrial fibrillation with RVR: Status: Acute Plan: HR: low 100s, not on any beta-fortunato or CCB, continue metoprolol tartrate 12.5 mg BID for rate control, telemetry. Not on anticoagulation. (4) Generalized weakness: Status: Acute Plan: likely due to CHF, Afib RVR and poor nutrition, UTI (5) Hypokalemia: Status: Acute Plan: K: 3.4, replace orally (6) CAD (coronary artery disease): Status: Acute Qualifiers: Associated angina: with unspecified angina Coronary Disease-Associated Artery/Lesion type: unspecified vessel or lesion type [place] vs. transplanted heart: [place] heart Qualified Code(s): I25.119 - Atherosclerotic heart disease of [place] coronary artery with unspecified angina pectoris Plan: resume ranexa and Lipitor (7) Chronic kidney disease: Status: Acute Plan: monitor Cr, daily BMP
[2018-12-09] MEDS ORDERED: POTASSIUM CHLORIDE LIQ 20 MEQ UDC PO ONE (10:37)
[2018-12-10 05:15] LABS: BLOOD UREA NITROGEN 32 mg/dL (7-18); CALCIUM 8.1 mg/dL (8.5-10.1); CARBON DIOXIDE 29.6 mmol/L (21-32); CHLORIDE 104 mmol/L (98-107); CREATININE 1.28 mg/dL (0.70-1.30); SODIUM 142 mmol/L (136-145); eGFR NON BLACK RACES 56 (>60)
[2018-12-10 05:16] LABS: BASOPHILS % (AUTO) 0.3 % (0.2-1.0); EOSINOPHILS # (AUTO) 0.2 x10^3/uL (0.0-0.2); EOSINOPHILS % (AUTO) 2.8 % (0.9-2.9); HEMATOCRIT 40.1 % (42.0-54.0); LYMPHOCYTES # (AUTO) 1.4 X10^3/uL (1.3-2.9); LYMPHOCYTES % (AUTO) 25.6 % (21.0-51.0); MEAN CORPUSCULAR HEMOGLOBIN 33.3 pg (27.0-34.0); MEAN CORPUSCULAR VOLUME 95.1 fL (80.0-100.0); MEAN PLATELET VOLUME 7.7 fL (7.4-11.0); MONOCYTES # (AUTO) 0.5 x10^3/uL (0.3-0.8); MONOCYTES % (AUTO) 9.6 % (0.0-13.0); NEUTROPHILS # (AUTO) 3.4 x10^3/uL (2.2-4.8); NEUTROPHILS % (AUTO) 61.7 % (42.0-75.0); PLATELET COUNT 219 X10^3/uL (150.0-450.0); RED BLOOD COUNT 4.21 X10^6/uL (4.7-6.0); RED CELL DISTRIBUTION WIDTH 15.6 % (11.6-16.5); WHITE BLOOD COUNT 5.5 X10^3/uL (3.6-10.0)
[2018-12-10] MEDS: K-DUR TAB 20 MEQ PO PRN (05:43)
[2018-12-10] MEDS: ROCEPHIN VIAL 1 GRAM 1 G in NS 100 ML IV + SPIKE MINIBAG* 100 ML IV SCH (08:45)
[2018-12-10] MEDS: RANEXA PO SCH ×2 (08:45→20:56)
[2018-12-10] MEDS: LIPITOR TAB 10 MG PO SCH (08:46)
[2018-12-10] MEDS: LASIX PO SCH (08:46)
[2018-12-10] MEDS: LOPRESSOR TAB 25 MG PO SCH ×2 (08:46→20:56)
--- NOTE | 2018-12-10 09:06 | PCM.PROG ---
Progress Note Progress Note for Day of Date of Exam: 12/10/18 Subjective Subjective: Patient seen at bedside, feeling a lot better. He wants to go home today. He is on 2L oxygen. His HR has been in the 80s. He reports his breathing has improved. Past Medical Family Social History Past Med/Fam/Surg Hx: No changes since H&P Allergies: Allergies No Known Drug Allergies Allergy (Verified 12/07/18 17:36) Review of Systems ROS: No change since H&P Vital Signs and I&O's Vital Signs: Temperature 98 F Pulse Rate [Left Brachial] 85 Pulse Rate 96 Respiratory Rate 18 Blood Pressure [Left Arm] 106/62 Blood Pressure [Right Arm] 101/60 Blood Pressure 115/80 O2 Sat by Pulse Oximetry 96 Intake and Output: Intake & Output 12/07/18 12/08/18 12/09/18 12/10/18 23:59 23:59 23:59 23:59 Intake Total 0 / 0 1580 / 1580 889 / 889 10 Output Total 100 / 100 1775 / 1775 1525 / 1525 175 / 175 Balance -100 / -100 -195 / -195 -636 / -636 -165 / -165 Physical Exam Oriented: Normal Eyes: Normal Throat: Normal Respiratory: Rales (very scattered crackles ) Cardiovascular: Normal and Irregular Auscultation: Bowel Sounds: Normal Tenderness: Normal Skin: Normal Psychiatric: Normal Mood Description: Calm Affect: Normal Speech Pattern: Clear and Appropriate Laboratory and Diagnostics Result Diagrams: 12/10/18 04:04 12/10/18 08:07 Labs: 12/08/18 02:06 Urine,Clean Catch Urine Culture - Final Klebsiella Oxytoca Laboratory WBC 5.5 X10^3/uL (3.6-10.0) 12/10/18 04:04 RBC 4.21 X10^6/uL (4.7-6.0) L 12/10/18 04:04 Hgb 14.0 g/dL (13.5-18.0) 12/10/18 04:04 Hct 40.1 % (42.0-54.0) L 12/10/18 04:04 MCV 95.1 fL (80.0-100.0) 12/10/18 04:04 MCH 33.3 pg (27.0-34.0) 12/10/18 04:04 MCHC 35.0 g/dL (33.0-35.0) 12/10/18 04:04 RDW 15.6 % (11.6-16.5) 12/10/18 04:04 Plt Count 219 X10^3/uL (150.0-450.0) 12/10/18 04:04 MPV 7.7 fL (7.4-11.0) 12/10/18 04:04 Neut % (Auto) 61.7 % (42.0-75.0) 12/10/18 04:04 Lymph % (Auto) 25.6 % (21.0-51.0) 12/10/18 04:04 [place] % (Auto) 9.6 % (0.0-13.0) 12/10/18 04:04 Eos % (Auto) 2.8 % (0.9-2.9) 12/10/18 04:04 Baso % (Auto) 0.3 % (0.2-1.0) 12/10/18 04:04 Neut # (Auto) 3.4 x10^3/uL (2.2-4.8) 12/10/18 04:04 Lymph # (Auto) 1.4 X10^3/uL (1.3-2.9) 12/10/18 04:04 [place] # (Auto) 0.5 x10^3/uL (0.3-0.8) 12/10/18 04:04 Eos # (Auto) 0.2 x10^3/uL (0.0-0.2) 12/10/18 04:04 Baso # (Auto) 0.0 X10^3/uL (0.0-0.1) 12/10/18 04:04 Absolute Nucleated RBC 0.2 /100WBC 12/10/18 04:04 Sodium 142 mmol/L (136-145) 12/10/18 04:04 Corrected Sodium TNP 12/10/18 04:04 Potassium 4.0 mmol/L (3.5-5.1) 12/10/18 08:07 Chloride 104 mmol/L (98-107) 12/10/18 04:04 Carbon Dioxide 29.6 mmol/L (21-32) 12/10/18 04:04 BUN 32 mg/dL (7-18) H 12/10/18 04:04 Creatinine 1.28 mg/dL (0.70-1.30) 12/10/18 04:04 Est GFR (MDRD) Af Amer > 60 (>60) 12/10/18 04:04 Est GFR (MDRD) Non-Af 56 (>60) L 12/10/18 04:04 Glucose 105 mg/dL (65-99) H 12/10/18 04:04 Calcium 8.1 mg/dL (8.5-10.1) L 12/10/18 04:04 Corrected Calcium 9.4 mg/dL (8.5-10.1) 12/08/18 04:32 Magnesium 1.9 mg/dL (1.7-2.9) 12/10/18 04:04 Total Bilirubin 1.20 mg/dL (0.2-1.0) H 12/08/18 04:32 AST 15 Units/L (15-37) 12/08/18 04:32 ALT 13 Units/L (12-78) 12/08/18 04:32 Alkaline Phosphatase 106 Units/L (46-116) 12/08/18 04:32 Creatine Kinase 21 Units/L (39-308) L 12/08/18 04:32 CK-MB (CK-2) < 1.0 ng/mL (0-4.0) 12/08/18 04:32 CK/CKMB % Calc 4.8 % (<4) 12/08/18 04:32 Troponin I < 0.02 ng/mL (0-1.5) 12/08/18 04:32 B-Natriuretic Peptide 317 pg/mL (0-79) H 12/07/18 18:13 Total Protein 7.5 g/dL (6.4-8.2) 12/08/18 04:32 Albumin 2.9 g/dL (3.4-5.0) L 12/08/18 04:32 Globulin 4.6 g/dL (2.5-4.5) H 12/08/18 04:32 Albumin/Globulin Ratio 0.6 Ratio (1.1-2.1) L 12/08/18 04:32 Triglycerides 51 mg/dL (0-150) 12/08/18 04:32 Cholesterol 124 mg/dL (0-200) 12/08/18 04:32 LDL Cholesterol, Calc 70 mg/dL (0-100) 12/08/18 04:32 HDL Cholesterol 44 mg/dL (40-60) 12/08/18 04:32 Cholesterol/HDL Ratio 2.8 (0.0-5.0) 12/08/18 04:32 Specimen Type Catherized urine 12/08/18 12:35 Urine Color Yellow (YELLOW) 12/08/18 12:35 Urine Appearance Hazy (CLEAR) 12/08/18 12:35 Urine pH 6.5 (5.0 - 8.0) 12/08/18 12:35 Ur Specific [place] 1.010 (1.000-1.030) 12/08/18 12:35 Urine Protein Negative (NEGATIVE) 12/08/18 12:35 Urine Glucose (UA) Negative (NEGATIVE) 12/08/18 12:35 Urine Ketones Negative (NEGATIVE) 12/08/18 12:35 Urine Occult Blood 4+ (NEGATIVE) 12/08/18 12:35 Urine Nitrite Negative (NEGATIVE) 12/08/18 12:35 Urine Bilirubin Negative (NEGATIVE) 12/08/18 12:35 Urine Urobilinogen 2+ (NORMAL) 12/08/18 12:35 Ur Leukocyte Esterase 3+ (NEGATIVE) 12/08/18 12:35 Urine RBC 10-20 /HPF (0-3) A 12/08/18 12:35 Urine WBC Tntc /HPF (0-5) A 12/08/18 12:35 Ur Squamous Epith Cells Few /HPF (NEGATIVE) 12/08/18 12:35 Urine Bacteria 2+ /HPF (NEGATIVE) 12/08/18 12:35 Urine Mucus Few /HPF (NEGATIVE) 12/08/18 02:06 Ur Culture Indicated? No/not indicated 12/08/18 12:35 Plan (1) UTI (urinary tract infection): Status: Acute Plan: UA suggestive of infection, culture pending. on Rocephin (2) Acute CHF (congestive heart failure): Status: Acute Plan: fluid overload on exam, CXR mild edema, effusion. Trop x 3 (-) Normal stress test . Switch to PO Lasix 20 mg qday, echo pending. PT/OT eval and home O2 eval. Possible DC today. (3) Atrial fibrillation with RVR: Status: Acute Plan: HR better controlled, continue metoprolol tartrate 12.5 mg BID for rate control. Not on anticoagulation. (4) Generalized weakness: Status: Acute Plan: likely due to CHF, Afib RVR and poor nutrition, UTI (5) Hypokalemia: Status: Acute Plan: resolved (6) CAD (coronary artery disease): Status: Acute Qualifiers: Associated angina: with unspecified angina Coronary Disease-Associated Artery/Lesion type: unspecified vessel or lesion type [place] vs. transplanted heart: [place] heart Qualified Code(s): I25.119 - Atherosclerotic heart disease of [place] coronary artery with unspecified angina pectoris Plan: resume ranexa and Lipitor (7) Chronic kidney disease: Status: Acute Plan: monitor Cr, daily BMP
[2018-12-10] MEDS: LOVENOX INJ 40 MG SYR SC SCH (12:05)
[2018-12-11 08:38] LABS: BLOOD UREA NITROGEN 26 mg/dL (7-18); CALCIUM 8.3 mg/dL (8.5-10.1); CARBON DIOXIDE 29.6 mmol/L (21-32); CHLORIDE 105 mmol/L (98-107); COR NA(FOR HYPERGLY) 142 mmol/L (136-145); CREATININE 1.27 mg/dL (0.70-1.30); SODIUM 141 mmol/L (136-145); eGFR NON BLACK RACES 57 (>60)
[2018-12-11] MEDS ORDERED: OMNICEF CAP 300 MG PO SCH (09:00)
--- NOTE | 2018-12-11 09:03 | PCM.PROG ---
Progress Note Progress Note for Day of Date of Exam: 12/11/18 Subjective Subjective: Patient seen at bedside, doing well. He walked with PT yesterday, will need 2L oxygen at home. He reports eating and drinking ok. He wants to go home today. His brown was removed this AM, has not voided yet. Patient stable for discharge if able to void and home oxygen set up. Past Medical Family Social History Past Med/Fam/Surg Hx: No changes since H&P Allergies: Allergies No Known Drug Allergies Allergy (Verified 12/07/18 17:36) Review of Systems ROS: No change since H&P Vital Signs and I&O's Vital Signs: Temperature 98.1 F Pulse Rate [Left Brachial] 76 Pulse Rate 96 Respiratory Rate 18 Blood Pressure [Left Arm] 118/73 Blood Pressure [Right Arm] 101/60 Blood Pressure 115/80 O2 Sat by Pulse Oximetry 98 Intake and Output: Intake & Output 12/08/18 12/09/18 12/10/18 12/11/18 23:59 23:59 23:59 23:59 Intake Total 1580 / 1580 889 / 889 1110 / 1110 100 / 100 Output Total 1775 / 1775 1525 / 1525 950 / 950 175 / 175 Balance -195 / -195 -636 / -636 160 / 160 -75 / -75 Physical Exam Oriented: Normal Throat: Normal Respiratory: Normal Cardiovascular: Normal and Irregular Auscultation: Bowel Sounds: Normal Tenderness: Normal Skin: Normal Musculoskeletal: Left (left shoulder tenderness, some restriction with ROM) Psychiatric: Normal Mood Description: Calm Affect: Normal Speech Pattern: Clear and Appropriate Laboratory and Diagnostics Result Diagrams: 12/10/18 04:04 12/11/18 08:13 Labs: 12/08/18 02:06 Urine,Clean Catch Urine Culture - Final Klebsiella Oxytoca Laboratory WBC 5.5 X10^3/uL (3.6-10.0) 12/10/18 04:04 RBC 4.21 X10^6/uL (4.7-6.0) L 12/10/18 04:04 Hgb 14.0 g/dL (13.5-18.0) 12/10/18 04:04 Hct 40.1 % (42.0-54.0) L 12/10/18 04:04 MCV 95.1 fL (80.0-100.0) 12/10/18 04:04 MCH 33.3 pg (27.0-34.0) 12/10/18 04:04 MCHC 35.0 g/dL (33.0-35.0) 12/10/18 04:04 RDW 15.6 % (11.6-16.5) 12/10/18 04:04 Plt Count 219 X10^3/uL (150.0-450.0) 12/10/18 04:04 MPV 7.7 fL (7.4-11.0) 12/10/18 04:04 Neut % (Auto) 61.7 % (42.0-75.0) 12/10/18 04:04 Lymph % (Auto) 25.6 % (21.0-51.0) 12/10/18 04:04 [place] % (Auto) 9.6 % (0.0-13.0) 12/10/18 04:04 Eos % (Auto) 2.8 % (0.9-2.9) 12/10/18 04:04 Baso % (Auto) 0.3 % (0.2-1.0) 12/10/18 04:04 Neut # (Auto) 3.4 x10^3/uL (2.2-4.8) 12/10/18 04:04 Lymph # (Auto) 1.4 X10^3/uL (1.3-2.9) 12/10/18 04:04 [place] # (Auto) 0.5 x10^3/uL (0.3-0.8) 12/10/18 04:04 Eos # (Auto) 0.2 x10^3/uL (0.0-0.2) 12/10/18 04:04 Baso # (Auto) 0.0 X10^3/uL (0.0-0.1) 12/10/18 04:04 Absolute Nucleated RBC 0.2 /100WBC 12/10/18 04:04 Sodium 141 mmol/L (136-145) 12/11/18 08:13 Corrected Sodium 142 mmol/L (136-145) 12/11/18 08:13 Potassium 3.7 mmol/L (3.5-5.1) 12/11/18 08:13 Chloride 105 mmol/L (98-107) 12/11/18 08:13 Carbon Dioxide 29.6 mmol/L (21-32) 12/11/18 08:13 BUN 26 mg/dL (7-18) H 12/11/18 08:13 Creatinine 1.27 mg/dL (0.70-1.30) 12/11/18 08:13 Est GFR (MDRD) Af Amer > 60 (>60) 12/11/18 08:13 Est GFR (MDRD) Non-Af 57 (>60) L 12/11/18 08:13 Glucose 146 mg/dL (65-99) H 12/11/18 08:13 Calcium 8.3 mg/dL (8.5-10.1) L 12/11/18 08:13 Corrected Calcium 9.4 mg/dL (8.5-10.1) 12/08/18 04:32 Magnesium 1.9 mg/dL (1.7-2.9) 12/10/18 04:04 Total Bilirubin 1.20 mg/dL (0.2-1.0) H 12/08/18 04:32 AST 15 Units/L (15-37) 12/08/18 04:32 ALT 13 Units/L (12-78) 12/08/18 04:32 Alkaline Phosphatase 106 Units/L (46-116) 12/08/18 04:32 Creatine Kinase 21 Units/L (39-308) L 12/08/18 04:32 CK-MB (CK-2) < 1.0 ng/mL (0-4.0) 12/08/18 04:32 CK/CKMB % Calc 4.8 % (<4) 12/08/18 04:32 Troponin I < 0.02 ng/mL (0-1.5) 12/08/18 04:32 B-Natriuretic Peptide 317 pg/mL (0-79) H 12/07/18 18:13 Total Protein 7.5 g/dL (6.4-8.2) 12/08/18 04:32 Albumin 2.9 g/dL (3.4-5.0) L 12/08/18 04:32 Globulin 4.6 g/dL (2.5-4.5) H 12/08/18 04:32 Albumin/Globulin Ratio 0.6 Ratio (1.1-2.1) L 12/08/18 04:32 Triglycerides 51 mg/dL (0-150) 12/08/18 04:32 Cholesterol 124 mg/dL (0-200) 12/08/18 04:32 LDL Cholesterol, Calc 70 mg/dL (0-100) 12/08/18 04:32 HDL Cholesterol 44 mg/dL (40-60) 12/08/18 04:32 Cholesterol/HDL Ratio 2.8 (0.0-5.0) 12/08/18 04:32 Specimen Type Catherized urine 12/08/18 12:35 Urine Color Yellow (YELLOW) 12/08/18 12:35 Urine Appearance Hazy (CLEAR) 12/08/18 12:35 Urine pH 6.5 (5.0 - 8.0) 12/08/18 12:35 Ur Specific [place] 1.010 (1.000-1.030) 12/08/18 12:35 Urine Protein Negative (NEGATIVE) 12/08/18 12:35 Urine Glucose (UA) Negative (NEGATIVE) 12/08/18 12:35 Urine Ketones Negative (NEGATIVE) 12/08/18 12:35 Urine Occult Blood 4+ (NEGATIVE) 12/08/18 12:35 Urine Nitrite Negative (NEGATIVE) 12/08/18 12:35 Urine Bilirubin Negative (NEGATIVE) 12/08/18 12:35 Urine Urobilinogen 2+ (NORMAL) 12/08/18 12:35 Ur Leukocyte Esterase 3+ (NEGATIVE) 12/08/18 12:35 Urine RBC 10-20 /HPF (0-3) A 12/08/18 12:35 Urine WBC Tntc /HPF (0-5) A 12/08/18 12:35 Ur Squamous Epith Cells Few /HPF (NEGATIVE) 12/08/18 12:35 Urine Bacteria 2+ /HPF (NEGATIVE) 12/08/18 12:35 Urine Mucus Few /HPF (NEGATIVE) 12/08/18 02:06 Ur Culture Indicated? No/not indicated 12/08/18 12:35 Plan (1) UTI (urinary tract infection): Status: Acute Plan: UA suggestive of infection, culture: Klebsiella oxytoca, will DC Rocephin and switch to Cefdinir 300 mg BID x 5 days. (2) Acute CHF (congestive heart failure): Status: Acute Plan: fluid overload on exam, CXR mild edema, effusion. Trop x 3 (-) Normal stress test . Continue Lasix 20 mg qday. Echo: EF 51%, normal diastolic function, no valve abnormalities. Sees Dr. De Guzman. Will need home oxygen at discharge. (3) Atrial fibrillation with RVR: Status: Acute Plan: HR better controlled, continue metoprolol tartrate 12.5 mg BID for rate control. Not on anticoagulation. (4) Generalized weakness: Status: Acute Plan: likely due to CHF, Afib RVR and poor nutrition, UTI. continue PT while inpatient, does not need any skilled services (5) Hypokalemia: Status: Acute Plan: resolved, 3.7 (6) CAD (coronary artery disease): Status: Acute Qualifiers: Associated angina: with unspecified angina Coronary Disease-Associated Artery/Lesion type: unspecified vessel or lesion type [place] vs. transplanted heart: [place] heart Qualified Code(s): I25.119 - Atherosclerotic heart disease of [place] coronary artery with unspecified angina pectoris Plan: resume ranexa and Lipitor (7) Chronic kidney disease: Status: Acute Plan: stable, Cr: 1.27
[2018-12-11] MEDS: LOVENOX INJ 40 MG SYR SC SCH (09:18)
[2018-12-11] MEDS: LOPRESSOR TAB 25 MG PO SCH (09:24)
[2018-12-11] MEDS: RANEXA PO SCH (09:25)
[2018-12-11] MEDS: LASIX PO SCH (09:25)
[2018-12-11] MEDS: LIPITOR TAB 10 MG PO SCH (09:25)
[2018-12-11 11:58] VITALS: BP 116/65
--- NOTE | 2018-12-11 14:54 | W.DIS.FURT ---
Summary of Discharge Discharge Summary of Date Date of Exam: 12/11/18 Admission Date Date of Admission: 12/07/18 Admission Diagnosis Patient Problems (Updated 12/09/18 @ 10:36 by Darlin Clarke) Hypokalemia (Acute) E87.6 UTI (urinary tract infection) (Acute) N39.0 Chronic kidney disease (Acute) N18.9 Acute CHF (congestive heart failure) (Acute) I50.9 CHF (congestive heart failure) (Acute) I50.9 Generalized weakness (Acute) R53.1 CAD (coronary artery disease) (Acute) I25.10 Atrial fibrillation with RVR (Acute) I48.91 Hospital Course: Mr. Melgar is a 88y/o male with a PMH of CAD s/p PCI, HLD and Atrial fibrillation presented with generalized weakness and wosening SOB. He was noted to be in acute CHF exacerbation based on clinical exam and CXR. He also had atrial fibrillation with RVR, HR in 100-120s. He received IV lasix and a brown was placed as patient is blind in both eyes. He was started on metoprolol tartrate 12.5 mg and his HR stablized to the 80s. Troponin x [address] ch anges on EKG.ECHO was done which showed EF 51%, normal diastolic function and no significant valvular abnormalities. He had a normal stress test in September [address] De Guzman. UA was suggestive of infection, culture grew Klebsiella. He was initially started on Rocephin and switched to Cefdinir on discharge. He was requiring 2L oxygen while inpatient and will be needed that on discharge. PT and OT were consulted, no needs for skilled services. Brown was removed and patient was able to void. Patient stable for discharge. Follow up with PCP and cardiology within one week. Vital Signs: Vital Signs (72 hours) 12/08/18 16:00 12/08/18 20:00 12/09/18 00:00 Temperature 98.4 F 97.5 F L 97.9 F Pulse Rate [Left Brachial] 104 H 96 H 91 H Respiratory Rate 20 26 H 22 Blood Pressure Blood Pressure [Left Arm] Blood Pressure [Right Arm] 117/69 105/60 99/63 O2 Sat by Pulse Oximetry 98 97 96 12/09/18 04:00 12/09/18 08:00 12/09/18 12:00 Temperature 98.1 F 97.4 F L 98.7 F Pulse Rate [Left Brachial] 76 89 86 Respiratory Rate 20 18 18 Blood Pressure Blood Pressure [Left Arm] 97/73 99/58 Blood Pressure [Right Arm] 101/60 O2 Sat by Pulse Oximetry 99 97 98 12/09/18 16:00 12/09/18 20:00 12/09/18 21:00 Temperature 98.4 F 98.1 F Pulse Rate [Left Brachial] 84 114 H 89 Respiratory Rate 18 18 Blood Pressure Blood Pressure [Left Arm] 82/58 109/72 Blood Pressure [Right Arm] O2 Sat by Pulse Oximetry 96 96 12/10/18 00:00 12/10/18 04:00 12/10/18 08:00 Temperature 98.4 F 98 F 97.8 F Pulse Rate [Left Brachial] 75 85 78 Respiratory Rate 18 18 18 Blood Pressure Blood Pressure [Left Arm] 98/64 106/62 103/65 Blood Pressure [Right Arm] O2 Sat by Pulse Oximetry 97 96 98 12/10/18 11:03 12/10/18 12:00 12/10/18 16:00 Temperature 97.8 F 97.8 F 97.5 F L Pulse Rate [Left Brachial] 87 84 Respiratory Rate 18 18 20 Blood Pressure 115/80 Blood Pressure [Left Arm] 112/73 92/65 Blood Pressure [Right Arm] O2 Sat by Pulse Oximetry 98 99 99 12/10/18 20:00 12/11/18 00:00 12/11/18 04:00 Temperature 97.9 F 98.0 F 97.6 F Pulse Rate [Left Brachial] 96 H 80 98 H Respiratory Rate 20 20 20 Blood Pressure Blood Pressure [Left Arm] 121/64 110/71 118/73 Blood Pressure [Right Arm] O2 Sat by Pulse Oximetry 98 98 98 12/11/18 08:00 12/11/18 11:57 Temperature 98.1 F 97.6 F Pulse Rate [Left Brachial] 76 78 Respiratory Rate 18 18 Blood Pressure Blood Pressure [Left Arm] 118/73 116/65 Blood Pressure [Right Arm] O2 Sat by Pulse Oximetry 98 96 Labs: Laboratory Last Values WBC 5.5 X10^3/uL (3.6-10.0) 12/10/18 04:04 RBC 4.21 X10^6/uL (4.7-6.0) L 12/10/18 04:04 Hgb 14.0 g/dL (13.5-18.0) 12/10/18 04:04 Hct 40.1 % (42.0-54.0) L 12/10/18 04:04 MCV 95.1 fL (80.0-100.0) 12/10/18 04:04 MCH 33.3 pg (27.0-34.0) 12/10/18 04:04 MCHC 35.0 g/dL (33.0-35.0) 12/10/18 04:04 RDW 15.6 % (11.6-16.5) 12/10/18 04:04 Plt Count 219 X10^3/uL (150.0-450.0) 12/10/18 04:04 MPV 7.7 fL (7.4-11.0) 12/10/18 04:04 Neut % (Auto) 61.7 % (42.0-75.0) 12/10/18 04:04 Lymph % (Auto) 25.6 % (21.0-51.0) 12/10/18 04:04 [place] % (Auto) 9.6 % (0.0-13.0) 12/10/18 04:04 Eos % (Auto) 2.8 % (0.9-2.9) 12/10/18 04:04 Baso % (Auto) 0.3 % (0.2-1.0) 12/10/18 04:04 Neut # (Auto) 3.4 x10^3/uL (2.2-4.8) 12/10/18 04:04 Lymph # (Auto) 1.4 X10^3/uL (1.3-2.9) 12/10/18 04:04 [place] # (Auto) 0.5 x10^3/uL (0.3-0.8) 12/10/18 04:04 Eos # (Auto) 0.2 x10^3/uL (0.0-0.2) 12/10/18 04:04 Baso # (Auto) 0.0 X10^3/uL (0.0-0.1) 12/10/18 04:04 Absolute Nucleated RBC 0.2 /100WBC 12/10/18 04:04 Sodium 141 mmol/L (136-145) 12/11/18 08:13 Corrected Sodium 142 mmol/L (136-145) 12/11/18 08:13 Potassium 3.7 mmol/L (3.5-5.1) 12/11/18 08:13 Chloride 105 mmol/L (98-107) 12/11/18 08:13 Carbon Dioxide 29.6 mmol/L (21-32) 12/11/18 08:13 BUN 26 mg/dL (7-18) H 12/11/18 08:13 Creatinine 1.27 mg/dL (0.70-1.30) 12/11/18 08:13 Est GFR (MDRD) Af Amer > 60 (>60) 12/11/18 08:13 Est GFR (MDRD) Non-Af 57 (>60) L 12/11/18 08:13 Glucose 146 mg/dL (65-99) H 12/11/18 08:13 Calcium 8.3 mg/dL (8.5-10.1) L 12/11/18 08:13 Corrected Calcium 9.4 mg/dL (8.5-10.1) 12/08/18 04:32 Magnesium 1.9 mg/dL (1.7-2.9) 12/10/18 04:04 Total Bilirubin 1.20 mg/dL (0.2-1.0) H 12/08/18 04:32 AST 15 Units/L (15-37) 12/08/18 04:32 ALT 13 Units/L (12-78) 12/08/18 04:32 Alkaline Phosphatase 106 Units/L (46-116) 12/08/18 04:32 Creatine Kinase 21 Units/L (39-308) L 12/08/18 04:32 CK-MB (CK-2) < 1.0 ng/mL (0-4.0) 12/08/18 04:32 CK/CKMB % Calc 4.8 % (<4) 12/08/18 04:32 Troponin I < 0.02 ng/mL (0-1.5) 12/08/18 04:32 B-Natriuretic Peptide 317 pg/mL (0-79) H 12/07/18 18:13 Total Protein 7.5 g/dL (6.4-8.2) 12/08/18 04:32 Albumin 2.9 g/dL (3.4-5.0) L 12/08/18 04:32 Globulin 4.6 g/dL (2.5-4.5) H 12/08/18 04:32 Albumin/Globulin Ratio 0.6 Ratio (1.1-2.1) L 12/08/18 04:32 Triglycerides 51 mg/dL (0-150) 12/08/18 04:32 Cholesterol 124 mg/dL (0-200) 12/08/18 04:32 LDL Cholesterol, Calc 70 mg/dL (0-100) 12/08/18 04:32 HDL Cholesterol 44 mg/dL (40-60) 12/08/18 04:32 Cholesterol/HDL Ratio 2.8 (0.0-5.0) 12/08/18 04:32 Specimen Type Catherized urine 12/08/18 12:35 Urine Color Yellow (YELLOW) 12/08/18 12:35 Urine Appearance Hazy (CLEAR) 12/08/18 12:35 Urine pH 6.5 (5.0 - 8.0) 12/08/18 12:35 Ur Specific [place] 1.010 (1.000-1.030) 12/08/18 12:35 Urine Protein Negative (NEGATIVE) 12/08/18 12:35 Urine Glucose (UA) Negative (NEGATIVE) 12/08/18 12:35 Urine Ketones Negative (NEGATIVE) 12/08/18 12:35 Urine Occult Blood 4+ (NEGATIVE) 12/08/18 12:35 Urine Nitrite Negative (NEGATIVE) 12/08/18 12:35 Urine Bilirubin Negative (NEGATIVE) 12/08/18 12:35 Urine Urobilinogen 2+ (NORMAL) 12/08/18 12:35 Ur Leukocyte Esterase 3+ (NEGATIVE) 12/08/18 12:35 Urine RBC 10-20 /HPF (0-3) A 12/08/18 12:35 Urine WBC Tntc /HPF (0-5) A 12/08/18 12:35 Ur Squamous Epith Cells Few /HPF (NEGATIVE) 12/08/18 12:35 Urine Bacteria 2+ /HPF (NEGATIVE) 12/08/18 12:35 Urine Mucus Few /HPF (NEGATIVE) 12/08/18 02:06 Ur Culture Indicated? No/not indicated 12/08/18 12:35 Reason For Visit: CHF,GENERALIZED WEAKNESS,A FIB WITH RVR Discharge Date Discharge Date: 12/11/18 Discharge Diagnosis All Active Problems (Updated 12/09/18 @ 10:36 by Darlin Clarke) Hypokalemia (Acute) UTI (urinary tract infection) (Acute) Chronic kidney disease (Acute) Acute CHF (congestive heart failure) (Acute) Toenail avulsion (Acute) CHF (congestive heart failure) (Acute) Generalized weakness (Acute) CAD (coronary artery disease) (Acute) Atrial fibrillation with RVR (Acute) Plan of Treatment: Continue with present treatment and follow up plan. Pt is to keep follow up appointment as instructed and take medications as ordered. Discharge Medications Discharge Medications: No Known Drug Allergies Allergy (Verified 12/07/18 17:36) CONTINUE taking the following medications atorvastatin [Lipitor] 10 mg PO DAILY 12/08/18 [History] ranolazine [Ranexa] 500 mg PO BID 12/08/18 [History] New Prescriptions cefdinir 300 mg PO Q12HR 5 Days #10 cap 12/11/18 [Rx] metoprolol tartrate 12.5 mg PO BID 30 Days #30 tab 12/11/18 [Rx] Discharge Disposition Discharge Disposition: home
== END 2018-12-11 15:28 | disposition home or self-care (01) | DRG 292 ==
LOC: MED/SURG 17:33 → ER 17:33 → MED/SURG 21:27
PROVIDERS: ADMIT Internal Medicine; ATTEND Internal Medicine
DX: H54.8 Legal blindness, as defined in USA; I50.9 Heart failure, unspecified; E87.6 Hypokalemia; B96.89 Other specified bacterial agents as the cause of diseases classified elsewhere; I25.119 Atherosclerotic heart disease of native coronary artery with unspecified angina pectoris; N18.9 Chronic kidney disease, unspecified; I48.91 Unspecified atrial fibrillation; R53.1 Weakness; R06.02 Shortness of breath; N39.0 Urinary tract infection, site not specified
CPT/HCPCS: 36415; 71010; 71045; 80048; 80053; 80061; 81001; 82550; 82553; 83735; 83880; 84132; 84484; 85025; 87086; 87088; 87186; 93005; 93306; 94760; 96365; 96374; 97161; 97166; 99284; A4216; A4222; G0378; J0696; J1650; J1940; J7030; J7050